=== PATIENT | male | born 1970 | race African-American/Black ===

== ENCOUNTER 2017-02-22 13:05 | Inpatient (IN) | payer OTHER ==
[2017-02-22 14:56] VITALS: BMI 22.9
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
[2017-02-22] MEDS ORDERED: LOPERAMIDE HCL 2 MG CAPSULE PO PRN (17:17)
[2017-02-22] MEDS ORDERED: hydrOXYzine PAMOATE 50 MG CAPSULE (FP) PO PRN (17:17)
[2017-02-22] MEDS ORDERED: IBUPROFEN 400 MG TABLET (FP) PO PRN (17:17)
[2017-02-22] MEDS ORDERED: guaiFENesin/D-METHORPHAN HB 10 ML UNIT-DOSE CUPS PO PRN (17:17)
[2017-02-22] MEDS ORDERED: MAGNESIUM HYDROX 2400MG/30ML ORAL SUSPENSION 30 ML CUP PO PRN (17:17)
[2017-02-22] MEDS ORDERED: P-EPHED 60MG/TRIPROLIDI 2.5MG TABLET PO PRN (17:17)
[2017-02-22] MEDS ORDERED: ACETAMINOPHEN 325 MG TABLET (FP) PO PRN (17:17)
[2017-02-22] MEDS ORDERED: chlordiazePOXIDE HCL 25 MG CAPSULE PO PRN (17:17)
[2017-02-22] MEDS ORDERED: MENTHOL/PHENOL 1 EACH UD MM PRN (17:17)
[2017-02-22] MEDS ORDERED: diphenhydrAMINE HCL 50 MG CAPSULE PO PRN (17:17)
[2017-02-22] MEDS ORDERED: MAG HYDROX/AL HYDROX/SIMETH 30 ML UNIT-DOSE CUP PO PRN (17:17)
[2017-02-22] MEDS ORDERED: MAGNESIUM CITRATE 300 ML BOTTLE PO PRN (17:17)
[2017-02-22] MEDS ORDERED: METHADONE HCL 10 MG TABLET (FOR DETOX USE ONLY) PO ONE ×2 (17:45→23:00)
[2017-02-22 22:12] LABS: URINE APPEARANCE CLEAR; URINE BILIRUBIN NEGATIVE (NEGATIVE); URINE BLOOD NEGATIVE (NEGATIVE); URINE COLOR LTYELLOW; URINE GLUCOSE (UA) NEGATIVE (NEGATIVE); URINE KETONE NEGATIVE (NEGATIVE); URINE NITRITE NEGATIVE (NEGATIVE); URINE PROTEIN NEGATIVE (NEGATIVE); URINE UROBILINOGEN NEGATIVE mg/dL (0.2-1.0)
[2017-02-22] MEDS: THIAMINE HCL 100 MG TABLET (FP) PO SCH (22:26)
[2017-02-22] MEDS: chlordiazePOXIDE HCL 25 MG CAPSULE PO SCH (22:27)
[2017-02-23] MEDS: chlordiazePOXIDE HCL 25 MG CAPSULE PO SCH ×4 (06:05→22:30)
[2017-02-23 09:58] LABS: MCH 30.6 pg (25.7-33.7); MCHC 32.9 g/dl (32.0-35.9); MEAN CELL VOLUME 93.1 fl (80-96); MEAN PLT VOLUME 9.2 fl (7.5-11.1); PLATELET COUNT 186 K/MM3 (134-434); RDW 12.9 % (11.9-15.9); WHITE BLOOD COUNT 5.8 K/mm3 (4.0-10.0)
[2017-02-23] MEDS ORDERED: METHADONE HCL 10 MG TABLET (FOR DETOX USE ONLY) PO SCH (10:00)
[2017-02-23 10:27] LABS: ALBUMIN 2.9 g/dl (3.4-5.0); ANION GAP 6 (8-16); CALCIUM 8.3 mg/dL (8.5-10.1); CO2 30 mmol/L (21-32); GLUCOSE,RANDOM 131 mg/dL (74-106)
[2017-02-23 10:30] LABS: ALK PHOS 67 U/L (45-117); BILIRUBIN,TOTAL 0.5 mg/dL (0.2-1.0); CREATININE 1.1 mg/dL (0.7-1.3); SGOT/AST 40 U/L (15-37); SGPT/ALT 66 U/L (12-78); TOT PROT 5.6 g/dl (6.4-8.2)
[2017-02-23] MEDS: PRENATAL VITAMINS W/ FOLIC ACID TABLET (FP) PO SCH (10:45)
[2017-02-23] MEDS: NICOTINE 14 MG/24 HOURS TOPICAL PATCH TD SCH (10:46)
[2017-02-23] MEDS: NICOTINE POLACRILEX 2 MG GUM BC PRN (10:46)
[2017-02-23 11:06] LABS: URINE LEUK ESTERASE Negative (NEGATIVE)
--- NOTE | 2017-02-23 13:33 | PN ---
[facility] CIWA - CIWA Score Nausea/Vomitin-No Nausea/No Vomiting Muscle Tremors: 4-Moderate,w/Arms Extend Anxiety: 3 Agitation: 1-Slight > Activity Paroxysmal Sweats: 3 Orientation: 0-Oriented Tacttile Disturbances: 2-Mild Itch/Numbness/Burn Auditory Disturbances: 0-None Visual Disturbances: 2-Mild Sensitivity Headache: 0-None Present CIWA-Ar Total Score: 15 S COWS - Scale Resting Pulse: 0= [place] 80 or Below Sweatin= Chills/Flushing Restless Observation: 1= Difficult to Sit Still Pupil Size: 0= Normal to Room Light Bone or Joint Aches: 2= Severe Diffuse Aches Runny Nose/ Eye Tearin= Nasal Congestion GI Upset > 30mins: 2= Nausea/Diarrhea Tremor Observation of Outstretched Hands: 2= Slight Tremor Visible Yawning Observation: 1= 1-2x During Session Anxiety or Irritability: 2=Irritable/Anxious Goose Flesh Skin: 0=Smooth Skin COWS Score: 12 [facility] Progress Note (SOAP) Subjective: Tremors, Sweating, Fatigue, Interrupted sleep, Fatigue. Objective: PT. A & O X 3. NO ACUTE DISTRESS. 02/23/17 13:33 Vital Signs Temperature 95.7 F L 02/23/17 09:48 Pulse Rate 75 02/23/17 09:48 Respiratory Rate 18 02/23/17 09:48 Blood Pressure 124/78 02/23/17 09:48 O2 Sat by Pulse Oximetry (%) Laboratory Tests 02/22/17 02/23/17 02/23/17 21:56 07:00 07:00 WBC 5.8 RBC 4.09 Hgb 12.5 Hct 38.1 MCV 93.1 MCH 30.6 MCHC 32.9 RDW 12.9 Plt Count 186 MPV 9.2 Sodium 142 Potassium 3.6 Chloride 106 Carbon Dioxide 30 Anion Gap 6 L BUN 11 Creatinine 1.1 Creat Clearance w eGFR > 60 Random Glucose 131 H Calcium 8.3 L Total Bilirubin 0.5 AST 40 H ALT 66 Alkaline Phosphatase 67 Total Protein 5.6 L Albumin 2.9 L Urine Color Ltyellow Urine Appearance Clear Urine pH 7.0 Ur Specific [place] 1.015 Urine Protein Negative Urine Glucose (UA) Negative Urine Ketones Negative Urine Blood Negative Urine Nitrite Negative Urine Bilirubin Negative Urine Urobilinogen Negative Ur Leukocyte Esterase Negative RPR Titer 02/23/17 07:00 WBC RBC Hgb Hct MCV MCH MCHC RDW Plt Count MPV Sodium Potassium Chloride Carbon Dioxide Anion Gap BUN Creatinine Creat Clearance w eGFR Random Glucose Calcium Total Bilirubin AST ALT Alkaline Phosphatase Total Protein Albumin Urine Color Urine Appearance Urine pH Ur Specific [place] Urine Protein Urine Glucose (UA) Urine Ketones Urine Blood Urine Nitrite Urine Bilirubin Urine Urobilinogen Ur Leukocyte Esterase RPR Titer Nonreactive LABS NOTED. HCV AB RESULT PENDING. 02/23/17 13:36 Assessment: 02/23/17 13:35 WITHDRAWAL SYMPTOMS. Plan: CONTINUE DETOX. BGM ACBK FOR ELEVATED ADMISSION RANDOM GLUCOSE LEVEL.
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
--- NOTE | 2017-02-23 20:29 | EKG ---
Test Reason : Blood Pressure : / mmHG Vent. Rate : 062 BPM Atrial Rate : 062 BPM P-R Int : 176 ms QRS Dur : 070 ms QT Int : 398 ms P-R-T Axes : 065 072 060 degrees QTc Int : 403 ms NORMAL SINUS RHYTHM NORMAL ECG NO PREVIOUS ECGS AVAILABLE Confirmed by CASSIE BLAIR MD ([id number]) on 02/23/2017 8:29:44 PM Referred By: Confirmed By:CASSIE BLAIR MD
[2017-02-23] MEDS: THIAMINE HCL 100 MG TABLET (FP) PO SCH (22:30)
[2017-02-23] MEDS: CLOTRIMAZOLE/BETAMET DIPROP 15 GM TUBE TP SCH (22:31)
[2017-02-24] MEDS: chlordiazePOXIDE HCL 25 MG CAPSULE PO SCH ×2 (06:13→10:30)
[2017-02-24] MEDS ORDERED: METHADONE HCL 5 MG TABLET (FOR DETOX USE ONLY) PO SCH (10:00)
[2017-02-24] MEDS: PRENATAL VITAMINS W/ FOLIC ACID TABLET (FP) PO SCH (10:29)
[2017-02-24] MEDS: NICOTINE POLACRILEX 2 MG GUM BC PRN (10:30)
[2017-02-24] MEDS: CLOTRIMAZOLE/BETAMET DIPROP 15 GM TUBE TP SCH (10:30)
[2017-02-24] MEDS: NICOTINE 14 MG/24 HOURS TOPICAL PATCH TD SCH (10:30)
--- NOTE | 2017-02-24 11:51 | PN ---
[facility] CIWA - CIWA Score Nausea/Vomitin-No Nausea/No Vomiting Muscle Tremors: 4-Moderate,w/Arms Extend Anxiety: 4-Mod. Anxious/Guarded Agitation: 4-Moderately Restless Paroxysmal Sweats: 1-Minimal Palms Moist Orientation: 0-Oriented Tacttile Disturbances: 3-Moderate Itch/Numb/Burn Auditory Disturbances: 0-None Visual Disturbances: 0-None Headache: 0-None Present CIWA-Ar Total Score: 16 S COWS - Scale Resting Pulse: 0= [place] 80 or Below Sweatin= Chills/Flushing Restless Observation: 3= Extraneous Movement Pupil Size: 2= Moderately Dilated Bone or Joint Aches: 4=Acute Joint/Muscle Pain Runny Nose/ Eye Tearin= Nasal Congestion GI Upset > 30mins: 1= Stomach Cramp Tremor Observation of Outstretched Hands: 1= Tremor [place], Not Seen Yawning Observation: 1= 1-2x During Session Anxiety or Irritability: 2=Irritable/Anxious Goose Flesh Skin: 0=Smooth Skin COWS Score: 16 [facility] Progress Note (SOAP) Subjective: ANXIETY,SWEATS,TREMORS,IRRITABILITY,INTERMITTENT SLEEP. Objective: 02/24/17 11:50 Vital Signs Temperature 97.0 F L 02/24/17 09:56 Pulse Rate 64 02/24/17 09:56 Respiratory Rate 18 02/24/17 09:56 Blood Pressure 109/72 02/24/17 09:56 O2 Sat by Pulse Oximetry (%) Laboratory Last Values WBC 5.8 K/mm3 (4.0-10.0) 02/23/17 07:00 RBC 4.09 M/mm3 (4.00-5.60) 02/23/17 07:00 Hgb 12.5 GM/dL (11.7-16.9) 02/23/17 07:00 Hct 38.1 % (35.4-49) 02/23/17 07:00 MCV 93.1 fl (80-96) 02/23/17 07:00 MCH 30.6 pg (25.7-33.7) 02/23/17 07:00 MCHC 32.9 g/dl (32.0-35.9) 02/23/17 07:00 RDW 12.9 % (11.9-15.9) 02/23/17 07:00 Plt Count 186 K/MM3 (134-434) 02/23/17 07:00 MPV 9.2 fl (7.5-11.1) 02/23/17 07:00 Sodium 142 mmol/L (136-145) 02/23/17 07:00 Potassium 3.6 mmol/L (3.5-5.1) 02/23/17 07:00 Chloride 106 mmol/L (98-107) 02/23/17 07:00 Carbon Dioxide 30 mmol/L (21-32) 02/23/17 07:00 Anion Gap 6 (8-16) L 02/23/17 07:00 BUN 11 mg/dL (7-18) 02/23/17 07:00 Creatinine 1.1 mg/dL (0.7-1.3) 02/23/17 07:00 Creat Clearance w eGFR > 60 (>60) 02/23/17 07:00 POC Glucometer 177 UNITS (()) 02/24/17 06:12 Random Glucose 131 mg/dL (74-106) H 02/23/17 07:00 Calcium 8.3 mg/dL (8.5-10.1) L 02/23/17 07:00 Total Bilirubin 0.5 mg/dL (0.2-1.0) 02/23/17 07:00 AST 40 U/L (15-37) H 02/23/17 07:00 ALT 66 U/L (12-78) 02/23/17 07:00 Alkaline Phosphatase 67 U/L (45-117) 02/23/17 07:00 Total Protein 5.6 g/dl (6.4-8.2) L 02/23/17 07:00 Albumin 2.9 g/dl (3.4-5.0) L 02/23/17 07:00 Urine Color Ltyellow 02/22/17 21:56 Urine Appearance Clear 02/22/17 21:56 Urine pH 7.0 (5.0-8.0) 02/22/17 21:56 Ur Specific [place] 1.015 (1.005-1.025) 02/22/17 21:56 Urine Protein Negative (NEGATIVE) 02/22/17 21:56 Urine Glucose (UA) Negative (NEGATIVE) 02/22/17 21:56 Urine Ketones Negative (NEGATIVE) 02/22/17 21:56 Urine Blood Negative (NEGATIVE) 02/22/17 21:56 Urine Nitrite Negative (NEGATIVE) 02/22/17 21:56 Urine Bilirubin Negative (NEGATIVE) 02/22/17 21:56 Urine Urobilinogen Negative mg/dL (0.2-1.0) 02/22/17 21:56 Ur Leukocyte Esterase Negative (NEGATIVE) 02/22/17 21:56 RPR Titer Nonreactive (NONREACTIVE) 02/23/17 07:00 Hepatitis C Antibody 0.1 s/co ratio (0.0-0.9) 02/23/17 07:00 PT WILL FOLLOW UP WITH PCP FOR BLOOD SUGAR MONITORING. COPY OF LAB RESULTS GIVEN TO PATIENT. Assessment: 02/24/17 11:51 WITHDRAWAL SX Plan: CONTINUE DETOX
[2017-02-24 14:03] VITALS: BP 122/70; PULSE 79; TEMP 97.8
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
[2017-02-24] MEDS ORDERED: QUEtiapine FUMARATE 100 MG TABLET (FP) PO SCH (22:00)
[2017-02-24] MEDS ORDERED: chlordiazePOXIDE 5 MG CAPSULE PO SCH (23:00)
[2017-02-25] MEDS ORDERED: chlordiazePOXIDE HCL 10 MG CAPSULE PO SCH (23:00)
[2017-02-26] MEDS ORDERED: METHADONE HCL 10 MG TABLET (FOR DETOX USE ONLY) PO SCH (10:00)
[2017-02-27] MEDS ORDERED: METHADONE HCL 5 MG TABLET (FOR DETOX USE ONLY) PO SCH (06:00)
== END 2017-02-24 15:02 | disposition home or self-care (01) | DRG 773 ==
LOC: YASAS 13:05 → Y3N 17:30
PROVIDERS: ADMIT Internal Medicine; ATTEND Internal Medicine
PROC: HZ2ZZZZ Detoxification Services for Substance Abuse Treatment (ICD-10-PCS; principal; 2017-02-22)
DX: F11.23 Opioid dependence with withdrawal (principal); F10.230 Alcohol dependence with withdrawal, uncomplicated; F14.20 Cocaine dependence, uncomplicated; F17.213 Nicotine dependence, cigarettes, with withdrawal; F91.8 Other conduct disorders; G47.00 Insomnia, unspecified; B18.2 Chronic viral hepatitis C
CPT/HCPCS: 36415; 80053; 81003; 85027; 86593; 86803; 93005; 93010